=== PATIENT | male | born 1935 | race Caucasian/White ===

== ENCOUNTER → 2017-10-24 | Outpatient (CLI) | payer MEDICARE ==
[~2017-10-24] MED LIST: ACET-66 PO; ASPI-1197 PO; ATOR40TA69 PO; B12 PO; CALCIUM PO; CHOL100040 PO; FLUT1AER IH; FOLI1TAB15 PO; GABA-529 PO; GAS X PO; GLUC-148 PO; GLUC1CAP PO; MESA400C PO; MULT1TAB70 PO; NITR0.4T50 SL; OMEG-98 PO; OMEG1CAP67 PO; PANT40TA25 PO; PEG4000S5 PO; RAMI2.5C15 PO; REGADENOSON 0.4 MG/5 ML PF SYG IVP SCH; TOLT4CAP PO; TYL3 PO; UBID50CA23 PO; VIT D3 PO; [UNRECOGNIZED DRUG - OTHER] PO
== END | disposition home or self-care (01) ==
LOC: SHCH 07:46
PROVIDERS: ATTEND Internal Medicine Cardiovascular Disease
DX: I25.10 Atherosclerotic heart disease of native coronary artery without angina pectoris (principal)
CPT/HCPCS: 78452; 93017; 96374; A9500 ×2; J2785

== ENCOUNTER 2017-11-14 08:32 | Day surgery (SDC) | payer MEDICARE ==
[2017-11-12 10:43] VITALS: BP 119/70
[2017-11-12 10:51] LABS: BASOPHILS % (AUTO) 0.6 % (0.0-5.0); HEMATOCRIT 41.3 % (42-54); LYMPHOCYTES % (AUTO) 22.4 % (21.0-51.0); MEAN CORPUSCULAR HGB CONC 34.1 g/dL (32.0-36.0); MEAN CORPUSCULAR VOLUME 91.1 fL (79-99); MONOCYTES % (AUTO) 8.6 % (3.0-13.0); NEUTROPHILS % (AUTO) 65.4 % (40.0-77.0); PLATELET COUNT (AUTO) 146 K/uL (130-400); RED BLOOD CELL COUNT(AUTO) 4.54 MIL/uL (4.50-6.20); RED CELL DISTRIBUTION WIDTH 13.3 % (11.0-15.5); WHITE BLOOD COUNT (AUTO) 6.1 K/uL (4.8-10.8)
[2017-11-12 10:59] LABS: POTASSIUM 4.6 mmol/L (3.5-5.1)
[2017-11-12 11:27] LABS: APPEARANCE,URINE Clear (CLEAR); BILIRUBIN,URINE Negative (NEGATIVE); COLOR,URINE Yellow (YELLOW); GLUCOSE, URINE (UA) Negative (NEGATIVE); KETONES,URINE Negative (NEGATIVE); LEUKOCYTE ESTERASE ,URINE Moderate (NEGATIVE); NITRATE,URINE Negative (NEGATIVE); OCCULT BLOOD,URINE Negative (NEGATIVE); PROTEIN,URINE Negative (NEGATIVE); UROBILINOGEN,URINE 0.2 mg/dL (0.2-1.0)
[2017-11-12 11:35] LABS: BACTERIA,URINE Rare /HPF (None Seen); RBC,URINE 0-1 /HPF (0-1); SQUAMOUS EPITHELIAL CELL,UR Rare /LPF (0-2)
[2017-11-12 11:56] LABS: INR 1.04 (0.85-1.15); PARTIAL THROMBOPLASTIN TIME 26.1 SEC (26.3-35.5); PROTHROMBIN TIME 10.9 SEC (9.6-11.6)
[2017-11-14] VITALS (19 sets, daily range): BP systolic 126–159; BP diastolic 57–74
[~2017-11-14] VITALS: Ht 185.4 cm; Wt 97.6 kg
[~2017-11-14 08:32] MED LIST changes: -ASPI-1197 PO; -CALCIUM PO; +CEFTRIAXONE 1GM/D5W 50ML 50 ML IV SCH; +CEFTRIAXONE SODIUM 1 GM IVP SCH; -GLUC-148 PO; -OMEG1CAP67 PO; -PEG4000S5 PO; -REGADENOSON 0.4 MG/5 ML PF SYG IVP SCH; -TYL3 PO
[2017-11-14] MEDS ORDERED: SODIUM CHLORIDE 0.9% 1000ML 1,000 ML IV ONE (10:06)
[2017-11-14] MEDS ORDERED: NITROGLYCERIN 5 MG/ML 10 ML VIAL IV ONE (10:59)
[2017-11-14] MEDS ORDERED: LIDOCAINE HCL 2% 20ML ONE (10:59)
[2017-11-14] MEDS ORDERED: ISOVUE-370 50ML VIAL IV ONE (10:59)
[2017-11-14] MEDS ORDERED: IOPAMIDOL-370 75 ML VIAL IV ONE ×2 (10:59→11:31)
[2017-11-14] MEDS ORDERED: SODIUM CHLORIDE 0.9% 1000ML 1,000 ML IV SCH (12:36)
[2017-11-14] MEDS ORDERED: HYDRALAZINE HCL 20 MG/ML VIAL IV PRN (12:45)
[2017-11-14] MEDS ORDERED: ACETAMINOPHEN-CODEINE 300/30MG TAB PO PRN (12:45)
[2017-11-14] MEDS ORDERED: DEXTROSE 50%-WATER 50 ML DISP.SYRIN IV PRN (12:45)
[2017-11-14] MEDS ORDERED: NITROGLYCERIN 0.4 MG SL TAB SL PRN (12:45)
[2017-11-14] MEDS ORDERED: METOPROLOL TARTRATE 1 MG/ML 5ML VIAL IV PRN (12:45)
[2017-11-14] MEDS ORDERED: GLUCAGON 1MG KIT 1 MG ML IM PRN (12:45)
[2017-11-14] MEDS ORDERED: ATROPINE SULFATE 0.1 MG/ML 10 ML SYG IVP ONE (13:28)
[2018-01-05] MEDS ORDERED: GLUC-148 PO (13:23)
[2018-01-05] MEDS ORDERED: PEG4000S5 PO (13:23)
[2018-01-05] MEDS ORDERED: ASPI-1197 PO (13:23)
[2018-01-05] MEDS ORDERED: OMEG1CAP67 PO (13:23)
[2018-01-05] MEDS ORDERED: CALCIUM PO (13:23)
[2018-01-05] MEDS ORDERED: CHOL100040 PO (13:23)
[2018-01-05] MEDS ORDERED: FLUT1AER IH (13:29)
== END 2017-11-14 17:30 | disposition home or self-care (01) ==
LOC: DAH 08:32
PROVIDERS: ATTEND Internal Medicine Cardiovascular Disease
DX: I25.110 Atherosclerotic heart disease of native coronary artery with unstable angina pectoris (principal); I49.5 Sick sinus syndrome; Z88.8 Allergy status to other drugs, medicaments and biological substances; R07.9 Chest pain, unspecified
CPT/HCPCS: 36415; 80048; 81001; 85025; 85610; 85730; 93005; 93459; A4606; C1769; C1894 ×2; J0696; J1644; J3490 ×2; J7030; Q9967 ×3; A4218; J0461

== ENCOUNTER 2018-01-06 05:35 | Observation (INO) | payer MEDICARE ==
[2018-01-05 09:32] VITALS: BP 148/66
[2018-01-05 09:44] LABS: BASOPHILS % (AUTO) 0.6 % (0.0-5.0); EOSINOPHILS % (AUTO) 2.2 % (0.0-8.0); HEMATOCRIT 42.2 % (42-54); MEAN CORPUSCULAR HEMOGLOBIN 30.9 pg (27.0-33.0); MEAN CORPUSCULAR HGB CONC 33.8 g/dL (32.0-36.0); MEAN CORPUSCULAR VOLUME 91.3 fL (79-99); MONOCYTES % (AUTO) 10.3 % (3.0-13.0); NEUTROPHILS % (AUTO) 62.9 % (40.0-77.0); NUCLEATED RED BLOOD CELLS 0.1 % (0.0-0.19); PLATELET COUNT (AUTO) 181 K/uL (130-400); RED BLOOD CELL COUNT(AUTO) 4.62 MIL/uL (4.50-6.20); RED CELL DISTRIBUTION WIDTH 13.3 % (11.0-15.5); WHITE BLOOD COUNT (AUTO) 5.7 K/uL (4.8-10.8)
[2018-01-05 09:50] LABS: POTASSIUM 4.3 mmol/L (3.5-5.1)
[~2018-01-06] VITALS: Ht 186.7 cm; Wt 95.1 kg
[2018-01-06] VITALS (21 sets, daily range): BP systolic 108–151; BP diastolic 51–70
[~2018-01-06 05:35] MED LIST changes: +ASPI-1197 PO; +CALCIUM PO; -CEFTRIAXONE 1GM/D5W 50ML 50 ML IV SCH; -CEFTRIAXONE SODIUM 1 GM IVP SCH; +GLUC-148 PO; -GLUC1CAP PO; -OMEG-98 PO; +OMEG1CAP67 PO; +PEG4000S5 PO; -VIT D3 PO; -[UNRECOGNIZED DRUG - OTHER] PO
[2018-01-06] MEDS ORDERED: LACTATED RINGERS 1000ML 1,000 ML IV ONE (06:03)
[2018-01-06] MEDS: CEFAZOLIN SODIUM 1 GM VIAL ONE ×2 (06:49→07:45)
[2018-01-06] MEDS ORDERED: BUPIVACAINE/EPI/PF 0.25% 30ML VIAL IJ ONE (06:51)
[2018-01-06] MEDS ORDERED: BACITRACIN 50,000 UNIT VIAL ONE (06:52)
[2018-01-06] MEDS ORDERED: THROMBIN-JMI 20000 UNIT KIT TP ONE (06:52)
[2018-01-06] MEDS ORDERED: DURAMORPH PF1 MG/ML 10ML AMP IV ONE (06:52)
[2018-01-06] MEDS ORDERED: GLYCOPYRROLATE 0.2 MG/ML 5 ML VIAL ONE ×2 (07:03→11:55)
[2018-01-06] MEDS ORDERED: DEXAMETHASONE SOD PHOSPHATE 10MG/ML 1ML VIAL ONE ×2 (07:03→09:33)
[2018-01-06] MEDS ORDERED: LIDOCAINE PF 2% 5ML ABBOJECT ONE (07:03)
[2018-01-06] MEDS ORDERED: MIDAZOLAM HCL 1 MG/ML 2ML VIAL ONE (07:05)
[2018-01-06] MEDS ORDERED: PROPOFOL 10 MG/ML 20ML VIAL IV ONE (07:06)
[2018-01-06] MEDS ORDERED: FENTANYL CITRATE PF 50 MCG/1 ML 2ML VIAL ONE ×2 (07:06→08:13)
[2018-01-06] MEDS ORDERED: EPHEDRINE SULFATE 50 MG/ML AMPULE ONE (07:40)
[2018-01-06] MEDS ORDERED: SUCCINYLCHOLINE CHLORIDE 20 MG/ML 10 ML VIAL ONE (09:32)
[2018-01-06] MEDS ORDERED: ROCURONIUM BROMIDE 10MG/1ML 5ML VL ONE ×2 (09:32)
[2018-01-06] MEDS ORDERED: ONDANSETRON HCL MDV 20ML 2 MG/ML VIAL ONE (09:33)
[2018-01-06] MEDS ORDERED: LIDOCAINE HCL 2% JELLY 5 ML ONE (09:33)
[2018-01-06] MEDS ORDERED: METOCLOPRAMIDE 10 MG/2 ML VIAL ONE (09:33)
[2018-01-06] MEDS ORDERED: LIDOCAINE HCL 4% LTA SOL 4 ML VIAL ONE ×3 (09:33)
[2018-01-06] MEDS ORDERED: OXYMETAZOLINE HCL SPRAY 15 ML BOTTLE ONE (09:54)
[2018-01-06] MEDS ORDERED: NEOSTIGMINE METHYLSULFATE 1MG/ML IV ONE (11:54)
[2018-01-06] MEDS ORDERED: PROMETHAZINE HCL 25 MG/ML 1ML AMPULE IM PRN (12:15)
[2018-01-06] MEDS ORDERED: HYDROCODONE/ACETAMINOPHEN 5/325 MG TAB PO PRN (12:15)
[2018-01-06] MEDS ORDERED: GAS X PO SCH (12:15)
[2018-01-06] MEDS ORDERED: MORPHINE SULFATE 2 MG/ML 1ML SYG IVP PRN (12:15)
[2018-01-06] MEDS: DEXAMETHASONE SOD PHOSPHATE 4 MG/ML 1ML VIAL IVP SCH ×2 (12:15→18:34)
[2018-01-06] MEDS ORDERED: CEFAZOLIN 2GM / 50 ML 50 ML IV SCH (12:15)
[2018-01-06] MEDS ORDERED: ACETAMINOPHEN EXTRA STRENGTH 500 MG TABLET PO SCH (12:15)
[2018-01-06] MEDS ORDERED: SODIUM CHLORIDE 0.9% 10 ML VIAL IVP PRN (12:15)
[2018-01-06] MEDS: CEFAZOLIN SODIUM 1 GM VIAL IVP SCH ×2 (13:45→16:09)
[2018-01-06] MEDS ORDERED: IPRATROPIUM/ALBUTEROL SULFATE 3 ML SOLUTION IH PRN (14:00)
[2018-01-06] MEDS: MESALAMINE 800 MG PO SCH ×2 (14:00→21:00)
[2018-01-06] MEDS: LACTATED RINGERS 1000ML 1,000 ML IV SCH (16:10)
[2018-01-06] MEDS ORDERED: BUDESONIDE 0.5 MG/2 ML INH IH PRN (18:00)
[2018-01-06] MEDS ORDERED: ATORVASTATIN CALCIUM 40 MG TABLET PO SCH (21:00)
[2018-01-06] MEDS ORDERED: OXYBUTYNIN CHLORIDE 5 MG TABLET PO SCH (21:00)
[2018-01-06] MEDS ORDERED: **HM**(Cholecalciferol (Vitamin D3) (Vitamin D3) 1,000 UNIT) PO SCH (21:00)
[2018-01-06] MEDS ORDERED: CYANOCOBALAMIN (VITAMIN B-12) 1,000 MCG TABLET PO SCH (21:00)
[2018-01-06] MEDS ORDERED: GABAPENTIN 100 MG CAPSULE PO SCH (21:00)
[2018-01-06] MEDS ORDERED: GLUCOSAMINE-CHONDROITIN PO SCH (21:00)
[2018-01-06] MEDS ORDERED: FISH OIL 1000 MG/CAP PO SCH (21:00)
[2018-01-06] MEDS ORDERED: UBIDECARENONE 50 MG PO SCH (21:00)
[2018-01-06] MEDS ORDERED: LISINOPRIL 10 MG TABLET PO SCH (21:00)
[2018-01-07] VITALS: BP 130/59
[2018-01-07] MEDS: DEXAMETHASONE SOD PHOSPHATE 4 MG/ML 1ML VIAL IVP SCH ×2 (00:03→05:44)
[2018-01-07] MEDS: LACTATED RINGERS 1000ML 1,000 ML IV SCH (01:21)
[2018-01-07 04:00] VITALS: BP 112/60
[2018-01-07 07:54] VITALS: BP 115/57
[2018-01-07] MEDS ORDERED: CALCIUM 600 + VITAMIN D 400 TABLET PO SCH (09:00)
[2018-01-07] MEDS ORDERED: ASPIRIN 81MG TAB.CHEW PO SCH (09:00)
[2018-01-07] MEDS ORDERED: MULTIVITAMIN TABLET PO SCH (09:00)
[2018-01-07] MEDS ORDERED: [UNRECOGNIZED DRUG - OTHER] PO SCH (09:00)
[2018-01-07] MEDS ORDERED: PEG PO SCH (09:00)
[2018-01-07] MEDS ORDERED: PANTOPRAZOLE SODIUM 40 MG TABLET.DR PO SCH (09:00)
[2018-01-07] MEDS ORDERED: KCL PO SCH (09:00)
[2018-01-07] MEDS ORDERED: FOLIC ACID 1 MG TABLET PO SCH (09:00)
== END 2018-01-07 09:05 | disposition home or self-care (01) ==
LOC: INTOOBSV 05:35 → DAHIP 05:35 → EDSTATUS 07:45 → 4BH 13:41
PROVIDERS: ADMIT Neurological Surgery; ATTEND Neurological Surgery
DX: M48.061 Spinal stenosis, lumbar region without neurogenic claudication (principal); K51.90 Ulcerative colitis, unspecified, without complications; K21.9 Gastro-esophageal reflux disease without esophagitis; J44.9 Chronic obstructive pulmonary disease, unspecified; M67.48 Ganglion, other site; Z96.651 Presence of right artificial knee joint; Z96.612 Presence of left artificial shoulder joint; Z95.0 Presence of cardiac pacemaker; Z79.899 Other long term (current) drug therapy
CPT/HCPCS: 36415; 63047; 63048 ×2; 72020; 80048; 85025; 88305; 94664; 96374; 96375; 96376; A4218; A4344; A4510; A4600; A6219; G0378 ×28; J0330; J0690 ×2; J1100 ×5; J2001; J2250; J2274; J2704; J2710; J2765; J3010 ×2; J3490 ×6; J7030; J7040; J7120 ×2

== ENCOUNTER → 2022-08-27 | Outpatient (CLI) | payer MEDICARE ==
[~2022-08-27] MED LIST changes: +MULT-660 PO; -MULT1TAB70 PO; -NITR0.4T50 SL; +OMEG-133 PO; -OMEG1CAP67 PO; -PANT40TA25 PO; +PANT40TA54 PO; -RAMI2.5C15 PO; +RAMI2.5C55 PO
== END | disposition home or self-care (01) ==
LOC: RAH 09:00
PROVIDERS: ATTEND Family Medicine
DX: K21.9 Gastro-esophageal reflux disease without esophagitis (principal); R13.12 Dysphagia, oropharyngeal phase
CPT/HCPCS: 74240